=== PATIENT | female | born 1950 ===

== ENCOUNTER 2016-09-11 06:52 | Day surgery (SDC) | payer MEDICARE, MEDICAID ==
[2016-09-11 07:03] VITALS: BMI 29.8
[2016-09-11] MEDS ORDERED: Propofol 10 mg/ml Inj (20 ML) ONE (10:59)
[2016-09-11] MEDS ORDERED: Midazolam 2 MG/2 ML VIAL ONE (11:00)
[2016-09-11] MEDS ORDERED: Lactated Ringer's 1,000 ML IV ONE (11:35)
[2016-09-11] MEDS ORDERED: Lactated Ringer's 1,000 ML IV SCH (11:45)
--- NOTE | 2016-09-11 13:05 | CP.SDSHP ---
Same Day Surgery H & P - History Proposed Procedure: Thyroid FNA Pre-Op Diagnosis: Right thyroid nodule. - Allergies Allergies: Allergies No Known Allergies Allergy (Verified 06/18/16 12:39) - Physical Exam Vital Signs: Vital Signs 09/11/16 09/11/16 11:00 11:35 Temperature 97.6 F 97.8 F Pulse Rate 59 L 56 L Respiratory 18 20 Rate Blood Pressure 133/79 101/66 O2 Sat by Pulse 99 99 Oximetry Short Stay Discharge - Short Stay Discharge Admitting Diagnosis/Reason for Visit: THYROID NODULE WITH SEDATION Disposition: HOME/ ROUTINE Referrals: An Scherer MD [Primary Care Provider] -
--- NOTE | 2016-09-11 13:07 | PCM.SURG1 ---
Surgeon's Initial Post Op Note - Surgeon's Notes Surgeon: Jamir Wax Pattern Assembler: None Type of Anesthesia: IV Sedation Pre-Operative Diagnosis: Right thyroid nodules. Operative Findings: Right thyroid nodule. Post-Operative Diagnosis: Right thyroid nodule Operation Performed: FNA Specimen/Specimens Removed: FNA Estimated Blood Loss: EBL {In ML}: 1 Date of Surgery/Procedure: 09/11/16 Time of Surgery/Procedure: 11:20
[2016-09-11 16:13] VITALS: BP 129/77; PULSE 56; RESP 18; TEMP 97.6; O2SAT 99
--- NOTE | 2016-09-11 16:22 | US ---
PROCEDURE: Ultrasound-guided right thyroid lobe fine needle aspiration biopsy. Clinical Indication: Right lobe thyroid nodule. Evaluate for malignancy. COMPARISON: Comparison is made to prior ultrasound of the thyroid gland. Anesthesia: Moderate sedation. PROCEDURE: The relative risks and indications for the procedure were explained to the patient and consent obtained. The patient was placed supine on the stretcher with the neck extended and preliminary sonography of the thyroid performed. This reveal a irregular heterogeneous nodule lower aspect of the right thyroid lobe. The neck was prepped and draped in the usual sterile fashion. Three passes with a 22 -gauge needle were performed under ultrasound guidance for fine needle aspiration of the heterogeneous nodule in the right thyroid lobe. The patient tolerated the procedure well. IMPRESSION: Ultrasound-guided fine needle aspiration biopsy of right lower thyroid lobe nodule as described above. Upper right thyroid nodule biopsy was performed on 09/04/2016.
== END 2016-09-11 16:27 | disposition home or self-care (01) ==
LOC: H.OPSURG 06:52
PROVIDERS: ATTEND Family Medicine
DX: E04.1 Nontoxic single thyroid nodule (principal); J45.909 Unspecified asthma, uncomplicated; E11.9 Type 2 diabetes mellitus without complications; E78.5 Hyperlipidemia, unspecified; I10 Essential (primary) hypertension
CPT/HCPCS: 10022; 82948; 88173; J2250; J2704; J3010; J7120

== ENCOUNTER 2016-11-14 06:02 | Observation (INO) | payer MEDICARE, MEDICAID ==
[2016-11-14] MEDS ORDERED: Lactated Ringer's 1,000 ML IV ONE ×2 (07:00→08:25)
[2016-11-14] MEDS ORDERED: Absorbable Gelatin Sponge Size 100 ONE (07:36)
[2016-11-14] MEDS ORDERED: Lidocaine 1% Inj (20ml) ONE (07:36)
[2016-11-14] MEDS ORDERED: Bupivacaine 0.5% Inj(30mL) ONE (07:36)
[2016-11-14] MEDS ORDERED: ePHEDrine 50 mg/ml Inj ONE (07:37)
[2016-11-14] MEDS ORDERED: Succinylcholine 200 mg/10 ml Inj IV ONE (07:37)
[2016-11-14] MEDS ORDERED: Propofol 10 mg/ml Inj (20 ML) ONE (07:37)
[2016-11-14] MEDS ORDERED: Rocuronium 10 mg/ml (5 ml) ONE (07:37)
[2016-11-14] MEDS ORDERED: Midazolam 2 MG/2 ML VIAL ONE (07:37)
[2016-11-14] MEDS ORDERED: Phenylephrine 10 mg/ml Inj ONE (07:38)
--- NOTE | 2016-11-14 07:42 | CP.SDSHP ---
Same Day Surgery H & P - History Proposed Procedure: Right Thyroid Lobectomy Pre-Op Diagnosis: Right Thyroid Nodule - Previous Medical/Surgical History Cardiac: Hypertension Misc: Other (Diabettes) Previous Surgical History: Appendectomy, Colonoscopy - Allergies Allergies: Allergies No Known Allergies Allergy (Verified 06/18/16 12:39) - Physical Exam General Appearance: well nourished, nad Vital Signs: Vital Signs 11/14/16 06:55 Temperature 97.6 F Pulse Rate 58 L Respiratory 18 Rate Blood Pressure 105/61 O2 Sat by Pulse 96 Oximetry Neuro: WNL Heart: WNL Lungs: WNL GI: WNL - Impression Impression: 66 yo F for Right Thyroid Lobectomy - Date & Time Date: 11/14/16 Time: 07:42 Short Stay Discharge - Short Stay Discharge Admitting Diagnosis/Reason for Visit: E04.1 Disposition: HOME/ ROUTINE
[2016-11-14] MEDS ORDERED: Lidocaine 2% MPF (5 ml) Inj ONE (07:44)
[2016-11-14] MEDS ORDERED: DiphenhydrAMINE 50 mg/ml Inj ONE (08:45)
[2016-11-14] MEDS ORDERED: Neostigmine Methylsulfate 3mg/3ml Syringe IV ONE (09:31)
--- NOTE | 2016-11-14 10:21 | PCM.SURG1 ---
Surgeon's Initial Post Op Note - Surgeon's Notes Surgeon: Dr. Armendariz Food Counselor: Dr. Pratt PGY-1, Dr. Davis PGY-2 Type of Anesthesia: General Endo Pre-Operative Diagnosis: Right thyroid nodule Operative Findings: See operative note Post-Operative Diagnosis: Righ thyroid nodule Operation Performed: Right thyroid lobectomy Specimen/Specimens Removed: Right hemithyroid Estimated Blood Loss: EBL {In ML}: 30 Blood Products Given: N/A Drains Used: Brian Date of Surgery/Procedure: 11/14/16 Time of Surgery/Procedure: 10:20
[2016-11-14] MEDS ORDERED: Oxycodone/Acetaminophen 5/325 mg Tab PO PRN ×2 (10:23→12:10)
[2016-11-14] MEDS ORDERED: HYDROmorphone 0.5 mg/0.5 ml ISec IVP PRN (10:27)
[2016-11-14] MEDS ORDERED: FLUTICASONE PROPIONATE PO SCH (10:30)
[2016-11-14] MEDS ORDERED: HYDROmorphone 0.5 mg/0.5 ml ISec IVP ONE (11:35)
[2016-11-14] MEDS ORDERED: Sodium Chloride 0.9% 1,000 ML IV ONE (12:35)
--- NOTE | 2016-11-14 13:20 | OP ---
PROCEDURE DATE: 11/14/2016 SURGEON: Izabella Armendariz MD. CORPORATE QUALITY ENGINEER: Dr. Davis and Dr. Pratt. ANESTHESIA: General, Dr. Mina. PREOPERATIVE DIAGNOSIS: Right thyroid nodules. POSTOPERATIVE DIAGNOSIS: Right thyroid nodules. PROCEDURE: Right thyroid lobectomy. DESCRIPTION OF OPERATION: With the patient in the supine position under adequate general anesthesia, the neck was prepped and draped in the usual sterile manner. After marking with a silk suture, a curving transverse incision was made in the lower neck crease and taken down through the subcutaneous tissue and the platysma layer. A subplatysmal flap was raised superiorly and inferiorly, and the strap muscles were incised in the midline and retracted to the right to expose the right lobe of the thyroid. The thyroid was noted to contain 2 small nodules in the lower and mid portions, and the thyroid was gently freed from lateral to medially beginning at the lower pole, where with gentle traction, the lower pole was exposed and dissected. The lower pole was clamped and divided, and the vessels suture-ligated with 3-0 silk. The 2 nodules were palpable within the ____ of the thyroid tissue, and the thyroid was continued to be dissected free at the lateral attachments, remaining superficial on the deep aspect to preserve what appeared to be a recurrent laryngeal nerve. The middle thyroid vein was clamped, divided, and ligated with 3-0 silk ties, and the dissection continued upward to expose the upper pole, which was also clamped, divided, and suture ligated with 3-0 silk suture ligature. The lobe was then completely freed off the surface of the trachea with small attachments either cauterized or clamped and ligated with 3- 0 silk ties. The isthmus was divided over Heron clamps and suture-ligated with 3-0 silk, and the thyroid lobe was removed. The operative site was examined for hemostasis. A 15 [place] Brian drain was placed within the surgical site brought out through a stab incision to the right and below the main incision. The midline was then closed with interrupted sutures of 3-0 Vicryl. The platysma was approximated with 3-0 Vicryl sutures and subcuticular closure was performed with 4-0 Monocryl and Steri-Strips. Dry sterile dressing was applied. The patient tolerated the procedure well and transferred to recovery room in stable condition. Estimated blood loss for the procedure was 30 mL. Izabella Armendariz MD cc: 58 TT: 11/14/2016 13:19:55 jn MTDD
[2016-11-14] MEDS: Oxycodone/Acetaminophen 5/325 mg Tab PO PRN (17:22)
[2016-11-15 07:37] VITALS: BP 115/68; PULSE 60; RESP 18; TEMP 97.4; O2SAT 99
[2016-11-15] MEDS: Oxycodone/Acetaminophen 5/325 mg Tab PO PRN (08:26)
[2016-11-15] MEDS ORDERED: ENALAPRIL MALEATE 10 MG PO SCH (09:00)
== END 2016-11-15 15:52 | disposition home or self-care (01) ==
LOC: H.OPSURG 06:02 → INTOOBSV 10:21 → H.MEDSURG1 10:21
PROVIDERS: ADMIT Specialist; ATTEND Specialist
DX: E04.2 Nontoxic multinodular goiter (principal); I10 Essential (primary) hypertension; E11.9 Type 2 diabetes mellitus without complications
CPT/HCPCS: 60225; 82948; 88305; G0378; J0330; J0690; J1170; J1200; J2001; J2250; J2370; J2405; J2704; J2710; J3010; J7030; J7040; J7120

== ENCOUNTER 2016-11-20 13:42 | Emergency (ER) | payer MEDICARE, MEDICAID ==
[2016-11-20 13:53] VITALS: BP 130/84; PULSE 66; RESP 18; TEMP 98.4; O2SAT 99
--- NOTE | 2016-11-20 15:31 | ED PDOC ---
HPI: General Adult Time Seen by Provider: 11/20/16 14:07 Chief Complaint (Nursing): Wound Check Chief Complaint (Provider): Tight sensation of neck s/p thyroid sugery History Per: Patient History/Exam Limitations: no limitations Onset/Duration Of Symptoms: Hrs Have you had recent travel within the past 21 days to any of the following countries: [place], [place], [place] or [place]?: No Current Symptoms Are (Timing): Still Present Additional Complaint(s): Pt states she had thyroid surgery [address] Armendariz. Pt states yesterday and today she feels a tickle in her throat which is relieved by sucking on candy. Pt states today she felt mild pain and tightness of the anterior neck today. No SOB. No difficulty breathing. Past Medical History Reviewed: Historical Data, Nursing Documentation, Vital Signs Vital Signs: Last Vital Signs Temp 98.4 F 11/20/16 13:50 Pulse 66 11/20/16 13:50 Resp 18 11/20/16 13:50 BP 130/84 11/20/16 13:50 Pulse Ox 99 11/20/16 15:35 - Medical History PMH: Diabetes, HTN, Hypercholesterolemia, Osteoporosis Denies: HIV - Surgical History Surgical History: Appendectomy - Family History Family History: States: Unknown Family Hx - Living Arrangements Living Arrangements: With Family - Social History Current smoker - smoking cessation education provided: No Alcohol: None Drugs: Denies - Home Medications Home Medications: Ambulatory Orders Medication Instructions Recorded Aspirin 81 mg PO DAILY 02/18/14 Atorvastatin [Lipitor] 40 mg PO DAILY 02/18/14 Calcium Carbonate/Vitamin D 1 tab PO DAILY 02/18/14 [Oscal-D 250 mg-125 Units Tab] Enalapril Maleate [Enalapril] 10 mg PO DAILY 02/18/14 Fluticasone Propionate 50 mg PO PRN 02/18/14 [Fluticasone] Metformin Hydrochloride [Metformin] 500 mg PO DAILY 02/18/14 hydroCHLOROthiazide [Hydrodiuril] 25 mg PO DAILY 02/18/14 Famotidine [Pepcid] 40 mg PO AC 11/14/16 Enalapril Maleate [Vasotec] 10 mg PO DAILY tab 11/15/16 Famotidine [Pepcid] 40 mg PO DAILY tab 11/15/16 hydroCHLOROthiazide [Hydrodiuril] 25 mg PO DAILY tab 11/15/16 metFORMIN [glucOPHAGE] 500 mg PO DAILY tab 11/15/16 oxyCODONE/Acetaminophen [Percocet 1 tab PO Q4 PRN #20 tab 11/15/16 5/325 mg Tab] - Allergies Allergies/Adverse Reactions: Allergies Allergy/AdvReac Type Severity Reaction Status Date / Time No Known Allergies Allergy Verified 06/18/16 12:39 Review of Systems ROS Statement: Except As Marked, All Systems Reviewed And Found Negative Musculoskeletal: Positive for: Neck Pain Physical Exam - Reviewed Nursing Documentation Reviewed: Yes Vital Signs Reviewed: Yes - Physical Exam Appears: Positive for: Well, Non-toxic, No Acute Distress Head Exam: Positive for: ATRAUMATIC, NORMAL INSPECTION, NORMOCEPHALIC Skin: Positive for: Normal Color (No edema or erythema seen around incision, which has steri-strips which are dry and inplace, non-tender incision), Warm Eye Exam: Positive for: Normal appearance ENT: Positive for: Normal ENT Inspection. Negative for: Pharyngeal Erythema, Tonsillar Exudate, Tonsillar Swelling Neck: Positive for: Normal, Painless ROM Cardiovascular/Chest: Positive for: Regular Rate, Rhythm Respiratory: Positive for: CNT, Normal Breath Sounds Back: Positive for: Normal Inspection Extremity: Positive for: Normal ROM Neurologic/Psych: Positive for: Alert, Oriented - ECG O2 Sat by Pulse Oximetry: 99 Pulse Ox Interpretation: Normal Medical Decision Making Medical Decision Making: Discussed with Dr. Armendariz. States if patient is not SOB, no wheezing, no obstruction of airway with breathing than patient can f/u at schedules appointment on 11/23/16. Disposition - Clinical Impression Clinical Impression: Encounter for postoperative wound check - Patient ED Disposition Is Patient to be Admitted: No Counseled Patient/Family Regarding: Diagnosis, Need For Followup - Disposition Referrals: Izabella Armendariz MD [Staff Provider] - Disposition: Routine/Home Disposition Time: 15:59 Condition: GOOD Additional Instructions: Please follow-up with Dr. Armendariz. Please return for worsening symptoms or difficulty breathing. Instructions: Thyroid Nodules (ED) Print Language: MALTESE
--- NOTE | 2016-11-20 15:55 | RAD ---
PROCEDURE: Radiographs of the neck (soft tissue). HISTORY: neck pain s/p thyroid surgery COMPARISON: None. TECHNIQUE: Frontal and Lateral Radiographs of the neck, optimized for soft tissue visualization. FINDINGS: SOFT TISSUES: No definite radiopaque foreign body. Punctate focus of air in the anterior soft tissues. CERVICAL SPINE: Grossly unremarkable. OTHER FINDINGS: None. IMPRESSION: No definite foreign body. Punctate focus of air in the anterior soft tissues. Underlying infection cannot be excluded. If indicated, CT of the neck with intravenous contrast (if there are no contraindications) can be obtained. Findings were discussed with ADDISON Monaco 3:55 p.mHarshal on 11/20/2016.
== END 2016-11-20 16:08 | disposition home or self-care (01) ==
LOC: H.ER 13:42
DX: M54.2 Cervicalgia (principal); E11.9 Type 2 diabetes mellitus without complications; E78.00 Pure hypercholesterolemia, unspecified; I10 Essential (primary) hypertension; M81.0 Age-related osteoporosis without current pathological fracture; Z79.82 Long term (current) use of aspirin; Z79.84 Long term (current) use of oral hypoglycemic drugs

== ENCOUNTER 2016-12-25 08:23 | Emergency (ER) | payer MEDICARE, MEDICAID ==
[2016-12-25 08:27] VITALS: BP 127/82; PULSE 77; TEMP 98; O2SAT 98
[2016-12-25 08:28] VITALS: BMI 28.1
[2016-12-25 08:41] VITALS: RESP 18
--- NOTE | 2016-12-25 09:04 | ED PDOC ---
HPI: CCC, URI, Sore Throat Time Seen by Provider: 12/25/16 08:34 Chief Complaint (Nursing): Cough, Cold, Congestion Chief Complaint (Provider): cough, cold, congestion History Per: Patient History/Exam Limitations: no limitations Have you had recent travel within the past 21 days to any of the following countries: [place], [place], [place] or [place]?: No Onset/Duration Of Symptoms: Days (x 2) Additional Complaint(s): Judith Arias is a 66 year old female, with a previous medical history of diabetes and seasonal allergies, who presents to the ED with complaints of sore throat associated with coughing, yellow sputum and sneezing ongoing for 2 days. Patient denies any fever or chills. PMD: none provided Past Medical History Vital Signs: Last Vital Signs Temp 98 F 12/25/16 08:37 Pulse 77 12/25/16 08:37 Resp 18 12/25/16 08:37 BP 127/82 12/25/16 08:37 Pulse Ox 98 12/25/16 09:18 - Medical History PMH: Diabetes, HTN, Hypercholesterolemia, Osteoporosis Denies: HIV - Surgical History Surgical History: Appendectomy - Family History Family History: States: Unknown Family Hx - Home Medications Home Medications: Ambulatory Orders Medication Instructions Recorded Aspirin 81 mg PO DAILY 02/18/14 Atorvastatin [Lipitor] 40 mg PO DAILY 02/18/14 Calcium Carbonate/Vitamin D 1 tab PO DAILY 02/18/14 [Oscal-D 250 mg-125 Units Tab] Enalapril Maleate [Enalapril] 10 mg PO DAILY 02/18/14 Fluticasone Propionate 50 mg PO PRN 02/18/14 [Fluticasone] Metformin Hydrochloride [Metformin] 500 mg PO DAILY 02/18/14 hydroCHLOROthiazide [Hydrodiuril] 25 mg PO DAILY 02/18/14 Famotidine [Pepcid] 40 mg PO AC 11/14/16 Enalapril Maleate [Vasotec] 10 mg PO DAILY tab 11/15/16 Famotidine [Pepcid] 40 mg PO DAILY tab 11/15/16 hydroCHLOROthiazide [Hydrodiuril] 25 mg PO DAILY tab 11/15/16 metFORMIN [glucOPHAGE] 500 mg PO DAILY tab 11/15/16 oxyCODONE/Acetaminophen [Percocet 1 tab PO Q4 PRN #20 tab 11/15/16 5/325 mg Tab] Azithromycin [Zithromax] 250 mg PO DAILY #6 tab 12/25/16 - Allergies Allergies/Adverse Reactions: Allergies Allergy/AdvReac Type Severity Reaction Status Date / Time No Known Allergies Allergy Verified 06/18/16 12:39 Review of Systems ROS Statement: Except As Marked, All Systems Reviewed And Found Negative ENT: Positive for: Throat Pain Cardiovascular: Negative for: Chest Pain Respiratory: Positive for: Cough, Sputum. Negative for: Shortness of Breath Physical Exam - Reviewed Nursing Documentation Reviewed: Yes Vital Signs Reviewed: Yes - Physical Exam Appears: Positive for: Well, Non-toxic, No Acute Distress Head Exam: Positive for: ATRAUMATIC, NORMAL INSPECTION, NORMOCEPHALIC Skin: Positive for: Normal Color, Warm, Dry Eye Exam: Positive for: EOMI, Normal appearance, PERRL ENT: Positive for: Normal ENT Inspection. Negative for: Pharyngeal Erythema, Tonsillar Exudate, Tonsillar Swelling Cardiovascular/Chest: Positive for: Regular Rate, Rhythm Respiratory: Positive for: Normal Breath Sounds. Negative for: Crackles, Rales , Rhonchi, Wheezing, Respiratory Distress Extremity: Positive for: Normal ROM. Negative for: Pedal Edema Neurologic/Psych: Positive for: Alert, Oriented - Laboratory Results Result Diagrams: 12/25/16 09:49 12/25/16 09:49 - ECG O2 Sat by Pulse Oximetry: 98 (RA) Pulse Ox Interpretation: Normal Medical Decision Making Medical Decision Making: Initial Plan: * labs * PTT * PT * CXR * rapid strep * reevaluation Scribe Attestation: Documented by Dalia Asher, acting as a scribe for Dalia Mario MD. Provider Scribe Attestation: All medical record entries made by the Scribe were at my direction and personally dictated by me. I have reviewed the chart and agree that the record accurately reflects my personal performance of the history, physical exam, medical decision making, and the department course for this patient. I have also personally directed, reviewed, and agree with the discharge instructions and disposition. Disposition - Clinical Impression Clinical Impression: URI (upper respiratory infection) - Disposition Referrals: [facility] [place] [Outside] Disposition: Routine/Home Disposition Time: 12:19 Condition: STABLE Prescriptions: Azithromycin [Zithromax] 250 mg PO DAILY #6 tab Instructions: Upper Respiratory Infection (ED) Print Language: GREEK
[2016-12-25 09:54] LABS: BASO # 0.1 K/uL (0.0-0.2); BASO % 0.6 % (0.0-2.0); EOS # 0.3 K/uL (0.0-0.7); EOS % 2.5 % (0.0-4.0); HEMOGLOBIN 12.9 g/dL (12.0-16.0); LYMPH # 1.6 K/uL (1.0-4.3); LYMPH % 15.7 % (20.0-40.0); MEAN CELL VOLUME 93.6 fl (81.0-99.0); MEAN CORPUSCULAR HEMOGLOBIN 32.2 pg (27.0-31.0); MEAN CORPUSCULAR HGB CONC 34.4 g/dL (33.0-37.0); MEAN PLATELET VOLUME 8.4 fl (7.2-11.7); MONO # 1.1 K/uL (0.0-0.8); MONO % 10.3 % (0.0-10.0); NEUT # 7.4 K/uL (1.8-7.0); NEUT % 70.9 % (50.0-75.0); NRBC % 0.1 % (0.0-0.0); RBC 4.02 Mil/uL (3.80-5.20); RED CELL DISTRIBUTION WIDTH 12.6 % (11.5-14.5); WHITE BLOOD COUNT 10.5 K/uL (4.8-10.8)
[2016-12-25 10:05] LABS: ALB/GLOB RATIO 1.5 (1.0-2.1); ALBUMIN 4.1 g/dL (3.5-5.0); ALT/SGPT 29 U/L (9-52); AST/SGOT 26 U/L (14-36); BLOOD UREA NITROGEN 29 mg/dl (7-17); CALCIUM 9.6 mg/dL (8.4-10.2); GFR AFRICAN-AMERICAN > 60; GFR NON-AFRICAN AMERICAN > 60
[2016-12-25] MEDS ORDERED: Sodium Chloride 0.9% 1,000 ML IV STA (10:08)
[2016-12-25 11:19] LABS: PARTIAL THROMBOPLASTIN TIME 27.5 Seconds (25.6-37.1); PROTHROMBIN TIME 11.4 Seconds (9.8-13.1)
--- NOTE | 2016-12-25 11:27 | RAD ---
HISTORY: Cough COMPARISON: Comparison made with prior chest radiograph 11/07/2016 TECHNIQUE: Chest PA and lateral FINDINGS: LUNGS: No active pulmonary disease. PLEURA: No significant pleural effusion identified. No pneumothorax apparent. Suspect minor biapical pleural thickening. CARDIOVASCULAR: Heart size within range of normal. OSSEOUS STRUCTURES: Kyphotic angulation in the lower thoracic region due to anterior wedge compression deformity of several lower thoracic segments. VISUALIZED UPPER ABDOMEN: Normal. OTHER FINDINGS: Questionable small of versus artifact due to kyphotic angulation IMPRESSION: No acute infiltrates. .
== END 2016-12-25 12:43 | disposition home or self-care (01) ==
LOC: H.ER 08:23
DX: J06.9 Acute upper respiratory infection, unspecified (principal); E11.9 Type 2 diabetes mellitus without complications; E78.00 Pure hypercholesterolemia, unspecified; I10 Essential (primary) hypertension; Z79.82 Long term (current) use of aspirin; Z79.84 Long term (current) use of oral hypoglycemic drugs
CPT/HCPCS: 71020; 80053; 85025; 85610; 85730; 87070; 87430; 99282; J7040